=== PATIENT | female | born 1955 | race African-American/Black ===

== ENCOUNTER 2016-07-24 18:07 | Inpatient (IN) | payer MEDICAID ==
[2016-07-24] VITALS (9 sets, daily range): BP systolic 150–195; BP diastolic 79–97; PULSE 105–120; RESP 24–26; TEMP 99.6; O2SAT 83–98
[~2016-07-24] VITALS: Ht 167.6 cm; Wt 83.2 kg
[~2016-07-24 18:07] MED LIST: ALBU.5I NEB; ALBU1AER INH; BACL10TA PO; CETI10 PO; CIPR500T93 PO; DICY1TAB26 PO; DULE100A INH; FLAG500T PO; LACT10SO27 PO; MELO7.5 PO; MONT10TA2 PO; NIFE1TAB85 PO; OLOP1DRO EACH EYE; PATA0.2S EACH EYE; TRAV0.00 EACH EYE; TRAZ100 PO; ZOFR4TAB3 SL
[2016-07-24] MEDS ORDERED: methylPREDNISolone SOD SUCC 125 MG/2 ML VIAL IVP ONE (18:15)
[2016-07-24] MEDS ORDERED: SODIUM CHLORIDE 0.9% FLUSH 10 ML FLUSH IVF PRN (18:15)
--- NOTE | 2016-07-24 18:23 | PD ---
HPI Chief Complaint: Respiratory Distress Time Seen by Provider: 18:18 Travel History International Travel<30 days: No Contact w/Intl Traveler<30days: No Traveled to known affect area: No History of Present Illness HPI 60-year-old female complains of wheezing and shortness of breath. Patient states that the symptoms started a week ago. Patient has history of COPD. Patient has been using inhaler at home. Patient on inhaled steroid. Patient denies any chest pain. Patient denies any fever chills. Patient states that she has productive cough for the past week. Patient took Z-Shankar, last day today. Patient denies abdominal pain. Patient denies any nausea vomiting diarrhea. PFSH Past Medical History Asthma: Yes Cardiovascular Problems: Yes High Cholesterol: Yes Diabetes: Yes Diminished Hearing: No Gastrointestinal Disorders: Yes (chronic constipation) GERD: Yes Hypertension: Yes Respiratory: Yes Past Surgical History Gynecologic Surgery: Yes (OOPHARECTOMY AND EXP LAP) Hysterectomy: Yes Social History Alcohol Use: No Tobacco Use: Yes (4 CIGARETTS PER DAY FOR 20 YEARS) Substance Use: No Allergies-Medications (Allergen,Severity, Reaction): Coded Allergies: Anaprox (Verified Allergy, Intermediate, 07/24/16) Penicillin (Verified Allergy, Mild, 07/24/16) Reported Meds & Prescriptions Reported Meds & Active Scripts Active Zofran ODT (Ondansetron HCl) 4 Mg Tab 4 Mg SL Q6H PRN FOR NAUSEA/VOMITING Reported Lactulose (Lactulose (Encephalopathy)) 10GM/15 Elsy 30 Ml PO BID Pazeo (Olopatadine HCl) 0.7 % Nikita 1 Drop EACH EYE DAILY Proair Hfa (Albuterol Sulfate) 8.5 Gm Aero 2 Puff INH Q4H PRN * SHAKE WELL BEFORE USE * Dulera 100 mcg/dose (Mometasone Furoate-Formoterol 100 mcg/dose) 100 mcg/ actuation Inh 1 Puff INH BID Mobic 7.5 Mg Tab (Meloxicam) 7.5 Mg Tab 15 Mg PO DAILY Flagyl (Metronidazole) 500 Mg Tab 500 Mg PO TID 10 Days TAKE UNTIL GONE Bentyl (Dicyclomine HCl) 20 Mg Tab 20 Mg PO Q6H PRN Pataday (Olopatadine HCl) 0.2 % Elsy 1 Drop EACH EYE DAILY Travatan Z (Travoprost) 0.004 % Nikita 1 Drop EACH EYE HS Trazodone HCl 100 Mg Tab 100 Mg PO HS Procardia Xl (Nifedipine) 30 Mg Tabcr 30 Mg PO HS Proventil Ud 0.5% (Albuterol Sulfate) 2.5 Mg/0.5 Ml Nebu 2.5 Mg NEB 2-3 TIMES A DAY PRN Singulair (Montelukast Sodium) 10 Mg Tab 10 Mg PO HS Review of Systems General / Constitutional: No: Fever Eyes: No: Visual changes HENT: No: Headaches Cardiovascular: No: Chest Pain or Discomfort Respiratory: Positive: Cough, Shortness of Breath, Wheezing Gastrointestinal: No: Abdominal Pain Genitourinary: No: Dysuria Musculoskeletal: No: Pain Skin: No Rash Neurologic: No: Weakness Psychiatric: No: Depression Endocrine: No: Polydipsia Hematologic/Lymphatic: No: Easy Bruising Physical Exam Narrative GENERAL: Well-nourished, well-developed patient. SKIN: Focused skin assessment warm/dry. HEAD: Normocephalic. EYES: No scleral icterus. No injection or drainage. NECK: Supple, trachea midline. No JVD or lymphadenopathy. CARDIOVASCULAR: Regular rate and rhythm without murmurs, gallops, or rubs. RESPIRATORY: Patient has moderate expiratory wheezes bilaterally. Few rhonchi at the bases. GASTROINTESTINAL: Abdomen soft, non-tender, nondistended. MUSCULOSKELETAL: No cyanosis, or edema. BACK: Nontender without obvious deformity. No CVA tenderness. Neurologic exam normal. Data Data Last Documented VS Vital Signs Date Time Temp Pulse Resp B/P Pulse Ox O2 Delivery O2 Flow Rate FiO2 07/24/16 18:22 92 Nasal Cannula 6 07/24/16 18:13 99.6 120 26 195/97 Orders Complete Blood Count With Diff (07/24/16 18:13) Comprehensive Metabolic Panel (07/24/16 18:13) B-Type Natriuretic Peptide (07/24/16 18:13) D-Dimer (07/24/16 18:13) Act Partial Throm Time (Ptt) (07/24/16 18:13) Prothrombin Time / Inr (Pt) (07/24/16 18:13) Magnesium (Mg) (07/24/16 18:13) Ckmb (Isoenzyme) Profile (07/24/16 18:13) Troponin I (07/24/16 18:13) Arterial Blood Gas (Abg) (07/24/16 18:13) Iv Access Insert/Monitor (07/24/16 18:13) Electrocardiogram (07/24/16 18:13) Ecg Monitoring (07/24/16 18:13) Oximetry (07/24/16 18:13) Oxygen Administration (07/24/16 18:13) Chest, Single Ap (07/24/16 18:13) Sodium Chloride 0.9% Flush (Ns Flush) (07/24/16 18:15) Methylprednisolone So Succ Inj (Solumedr (07/24/16 18:15) Albuterol-Ipratropium Neb (Duoneb Neb) (07/24/16 18:15) Labs Laboratory Tests Test 07/24/16 07/24/16 18:16 18:20 Blood Gas Puncture Site LT RADIAL Blood Gas Patient Temperature 98.6 Blood Gas HCO3 32 mmol/L Blood Gas Base Excess 6.3 mmol/L Blood Gas Oxygen Saturation 82 % Arterial Blood pH 7.34 Arterial Blood Partial 60 mmHg Pressure CO2 Arterial Blood Partial 53 mmHG Pressure O2 Arterial Blood Oxygen Content 17.5 Vol % Arterial Blood 3.5 % Carboxyhemoglobin Arterial Blood Methemoglobin 0.7 % Blood Gas Hemoglobin 15.3 G/DL Oxygen Delivery Device NASAL CANNULA Blood Gas Liter Flow 6 L/M White Blood Count 8.5 TH/MM3 Red Blood Count 5.24 MIL/MM3 Hemoglobin 15.0 GM/DL Hematocrit 46.7 % Mean Corpuscular Volume 89.1 FL Mean Corpuscular Hemoglobin 28.7 PG Mean Corpuscular Hemoglobin 32.2 % Concent Red Cell Distribution Width 15.2 % Platelet Count 260 TH/MM3 Mean Platelet Volume 8.4 FL Neutrophils (%) (Auto) 81.9 % Lymphocytes (%) (Auto) 11.8 % Monocytes (%) (Auto) 5.5 % Eosinophils (%) (Auto) 0.0 % Basophils (%) (Auto) 0.8 % Neutrophils # (Auto) 6.9 TH/MM3 Lymphocytes # (Auto) 1.0 TH/MM3 Monocytes # (Auto) 0.5 TH/MM3 Eosinophils # (Auto) 0.0 TH/MM3 Basophils # (Auto) 0.1 TH/MM3 CBC Comment DIFF FINAL Differential Comment MDM Medical Decision Making Medical Screen Exam Complete: Yes Emergency Medical Condition: Yes Interpretation(s) 1823 PM. EKG shows sinus tachycardia. Rate 115. Nonspecific ST-T wave change. Differential Diagnosis Differential diagnosis including acute exacerbation COPD, bronchitis, pneumonia , PE, pneumothorax. Narrative Course 60-year-old female with wheezing and shortness of breath. History of COPD. Albuterol with Atrovent unit dose treatment 3. Solu-Medrol 125 mg IV. Diagnosis Primary Impression: COPD with acute exacerbation Fredy White MD July 24, 2016 18:23
[2016-07-24 18:26] LABS: BLOOD GAS BASE EXCESS 6.3 mmol/L (-2-2); BLOOD GAS CARBOXYHEMOGLOBIN 3.5 % (0-4); BLOOD GAS HCO3 32 mmol/L (22-26); BLOOD GAS METHEMOGLOBIN 0.7 % (0-2); BLOOD GAS O2 HGB SATURATION 82 % (90-100); BLOOD GAS OXYGEN CONTENT 17.5 Vol % (12.0-20.0); BLOOD GAS PCO2 60 mmHg (38-42); BLOOD GAS PO2 53 mmHG (61-120); BLOOD GAS TOTAL HGB 15.3 G/DL (12.0-16.0); CRITICAL VALUE YES; DRAW SITE LT RADIAL; LITER FLOW 6 L/M; NUMBER OF ARTERIAL PUNCTURES 1; OXYGEN DEVICE NASAL CANNULA; STAT YES; TEMP CORR TO 98.6
[2016-07-24] MEDS: RESP: ALBUTEROL 2.5 MG/IPRATROPIUM 0.5 MG NEB (SCH) INH ×5 (18:30→23:25)
[2016-07-24 18:35] LABS: AUTOMATED NEUTROPHIL # 6.9 TH/MM3 (1.8-7.7); BASOPHIL # 0.1 TH/MM3 (0-0.2); BASOPHIL % 0.8 % (0.0-2.0); HEMATOCRIT 46.7 % (35.0-46.0); HEMO FLAGS DIFF FINAL; LYMPH % 11.8 % (9.0-44.0); MEAN CELL VOLUME 89.1 FL (80.0-100.0); MEAN CORPUSCULAR HEMOGLOBIN 28.7 PG (27.0-34.0); MEAN CORPUSCULAR HGB CONC 32.2 % (32.0-36.0); MONO % 5.5 % (0.0-8.0); NEUT % 81.9 % (16.0-70.0); PLATELET COUNT 260 TH/MM3 (150-450); RED BLOOD COUNT 5.24 MIL/MM3 (4.00-5.30); RED CELL DISTRIBUTION WIDTH 15.2 % (11.6-17.2); WHITE BLOOD COUNT 8.5 TH/MM3 (4.0-11.0)
[2016-07-24 18:50] LABS: ANION GAP 9 MEQ/L (5-15); AST (GOT) 13 U/L (15-37); BICARBONATE 31.5 MEQ/L (21.0-32.0); BLOOD UREA NITROGEN 8 MG/DL (7-18); CHLORIDE 94 MEQ/L (98-107); GLOMERULAR FILTRATION RATE 153 ML/MIN (>89); MAGNESIUM 2.2 MG/DL (1.5-2.5); POTASSIUM 3.7 MEQ/L (3.5-5.1); SODIUM (NA) 134 MEQ/L (136-145)
[2016-07-24 18:51] LABS: APTT (PATIENT) 33.1 SEC (24.3-30.1); PROTHROMBIN TIME - PATIENT 11.3 SEC (9.8-11.6)
[2016-07-24 18:55] LABS: ALKALINE PHOSPHATASE 80 U/L (45-117); ALT (GPT) 13 U/L (10-53); TOTAL BILIRUBIN ADULT 0.4 MG/DL (0.2-1.0)
[2016-07-24 19:01] LABS: CREATINE KINASE 100 U/L (26-192)
--- NOTE | 2016-07-24 19:23 | RADRPT ---
EXAM DATE/TIME: 07/24/2016 18:33 [facility] COMPARISON: No previous studies available for comparison. INDICATIONS : Shortness of breath. MEDICAL HISTORY : Chronic obstructive pulmonary disease. SURGICAL HISTORY : None. ENCOUNTER: Initial ACUITY: 1 day PAIN SCORE: 0/10 LOCATION: Bilateral chest FINDINGS: A single view of the chest demonstrates no focal consolidation. Bronchial thickening. Minimal scatter ed scarring in the lungs. No effusion. CONCLUSION: 1. No focal consolidation. Mild hyperinflation with peribronchial thickening. Brian Bond MD on July 24, 2016 at 19:20 Board Certified Radiologist. This report was verified electronically.
--- NOTE | 2016-07-24 19:33 | PD ---
Data Data Last Documented VS Vital Signs Date Time Temp Pulse Resp B/P Pulse Ox O2 Delivery O2 Flow Rate FiO2 07/24/16 22:37 105 24 150/79 97 BiPAP 07/24/16 21:30 15.00 07/24/16 19:46 40 07/24/16 18:13 99.6 Orders Complete Blood Count With Diff (07/24/16 18:13) Comprehensive Metabolic Panel (07/24/16 18:13) B-Type Natriuretic Peptide (07/24/16 18:13) D-Dimer (07/24/16 18:13) Act Partial Throm Time (Ptt) (07/24/16 18:13) Prothrombin Time / Inr (Pt) (07/24/16 18:13) Magnesium (Mg) (07/24/16 18:13) Ckmb (Isoenzyme) Profile (07/24/16 18:13) Troponin I (07/24/16 18:13) Arterial Blood Gas (Abg) (07/24/16 18:13) Iv Access Insert/Monitor (07/24/16 18:13) Electrocardiogram (07/24/16 18:13) Ecg Monitoring (07/24/16 18:13) Oximetry (07/24/16 18:13) Oxygen Administration (07/24/16 18:13) Chest, Single Ap (07/24/16 18:13) Sodium Chloride 0.9% Flush (Ns Flush) (07/24/16 18:15) Methylprednisolone So Succ Inj (Solumedr (07/24/16 18:15) Albuterol-Ipratropium Neb (Duoneb Neb) (07/24/16 18:15) Albuterol-Ipratropium Neb (Duoneb Neb) (07/24/16 19:30) Ventilation & Perfusion Scan (07/24/16 ) Arterial Blood Gas (Abg) (07/24/16 ) Admit Order (Ed Use Only) (07/24/16 ) Labs Laboratory Tests Test 07/24/16 07/24/16 07/24/16 18:16 18:20 20:33 Blood Gas Puncture Site LT RADIAL LT RADIAL Blood Gas Patient Temperature 98.6 98.6 Blood Gas HCO3 32 mmol/L 32 mmol/L Blood Gas Base Excess 6.3 mmol/L 6.4 mmol/L Blood Gas Oxygen Saturation 82 % 94 % Arterial Blood pH 7.34 7.35 Arterial Blood Partial 60 mmHg 60 mmHg Pressure CO2 Arterial Blood Partial 53 mmHG 103 mmHG Pressure O2 Arterial Blood Oxygen Content 17.5 Vol % 19.5 Vol % Arterial Blood 3.5 % 2.8 % Carboxyhemoglobin Arterial Blood Methemoglobin 0.7 % 0.7 % Blood Gas Hemoglobin 15.3 G/DL 14.6 G/DL Oxygen Delivery Device NASAL CANNULA BiPAP Blood Gas Liter Flow 6 L/M White Blood Count 8.5 TH/MM3 Red Blood Count 5.24 MIL/MM3 Hemoglobin 15.0 GM/DL Hematocrit 46.7 % Mean Corpuscular Volume 89.1 FL Mean Corpuscular Hemoglobin 28.7 PG Mean Corpuscular Hemoglobin 32.2 % Concent Red Cell Distribution Width 15.2 % Platelet Count 260 TH/MM3 Mean Platelet Volume 8.4 FL Neutrophils (%) (Auto) 81.9 % Lymphocytes (%) (Auto) 11.8 % Monocytes (%) (Auto) 5.5 % Eosinophils (%) (Auto) 0.0 % Basophils (%) (Auto) 0.8 % Neutrophils # (Auto) 6.9 TH/MM3 Lymphocytes # (Auto) 1.0 TH/MM3 Monocytes # (Auto) 0.5 TH/MM3 Eosinophils # (Auto) 0.0 TH/MM3 Basophils # (Auto) 0.1 TH/MM3 CBC Comment DIFF FINAL Differential Comment Prothrombin Time 11.3 SEC Prothromb Time International 1.0 RATIO Ratio Activated Partial 33.1 SEC Thromboplast Time D-Dimer Quantitative (PE/DVT) 0.51 MG/L FEU Sodium Level 134 MEQ/L Potassium Level 3.7 MEQ/L Chloride Level 94 MEQ/L Carbon Dioxide Level 31.5 MEQ/L Anion Gap 9 MEQ/L Blood Urea Nitrogen 8 MG/DL Creatinine 0.50 MG/DL Estimat Glomerular Filtration 153 ML/MIN Rate Random Glucose 108 MG/DL Calcium Level 8.8 MG/DL Magnesium Level 2.2 MG/DL Total Bilirubin 0.4 MG/DL Aspartate Amino Transf 13 U/L (AST/SGOT) Alanine Aminotransferase 13 U/L (ALT/SGPT) Alkaline Phosphatase 80 U/L Total Creatine Kinase 100 U/L Troponin I LESS THAN 0.02 NG/ML B-Type Natriuretic Peptide 39 PG/ML Total Protein 8.2 GM/DL Albumin 3.5 GM/DL Blood Gas Ventilator Setting IPAP/12/EPAP5 Blood Gas Inspired Oxygen 40 % [facility] Supervised Visit with DONTRELL: No Narrative Course Care assumed from Dr. White at 1900. This is a 60-year-old female with shortness of breath for weak. History of COPD. She is on BiPAP on my arrival and has had breathing treatments and Solu-Medrol. She is satting 96% on the BiPAP machine currently. Remains tachycardic states overall she started to feel better. D-dimer is weakly positive at 0.51. CT PE protocol has been ordered but patient allergic to contrast, VQ scan was ordered after discussing with the radiologist. Additional DuoNeb treatments of been ordered as well. We will reassess after the PE protocol and additional DuoNeb for possible weaning off the BiPAP. She will be admitted as her initial O2 sat was in the 80s range and she is a failure of outpatient therapy. Last 24 hours Impressions Chest X-Ray 07/24/16 1813 Signed Impressions: Service Date/Time: Sunday, July 24, 2016 18:33 - CONCLUSION: 1. No focal consolidation. Mild hyperinflation with peribronchial thickening. Brian Bond MD Lung Scan-VQ Nuclear Medicine 07/24/16 0000 Signed Impressions: Service Date/Time: Sunday, July 24, 2016 21:37 - CONCLUSION: 1. Low probability for pulmonary embolus. Brian Bond MD Patient was discussed with Dr. Nicole who agrees for admission. Diagnosis Primary Impression: Acute respiratory failure with hypoxia Additional Impression: COPD with acute exacerbation Admitting Information Admitting Physician Requests: Admit Condition: Claudy Grant MD July 24, 2016 19:33
[2016-07-24 20:43] LABS: BLOOD GAS BASE EXCESS 6.4 mmol/L (-2-2); BLOOD GAS CARBOXYHEMOGLOBIN 2.8 % (0-4); BLOOD GAS HCO3 32 mmol/L (22-26); BLOOD GAS METHEMOGLOBIN 0.7 % (0-2); BLOOD GAS O2 HGB SATURATION 94 % (90-100); BLOOD GAS OXYGEN CONTENT 19.5 Vol % (12.0-20.0); BLOOD GAS PCO2 60 mmHg (38-42); BLOOD GAS PO2 103 mmHG (61-120); BLOOD GAS TOTAL HGB 14.6 G/DL (12.0-16.0); TEMP CORR TO 98.6
[2016-07-24 20:44] LABS: CRITICAL VALUE YES; DRAW SITE LT RADIAL; FIO2 40 %; NUMBER OF ARTERIAL PUNCTURES 1; OXYGEN DEVICE BiPAP; STAT YES; ULNAR PULSE PRESENT; VENT SETTINGS IPAP/12/EPAP5
--- NOTE | 2016-07-24 22:31 | RADRPT ---
EXAM DATE/TIME: 07/24/2016 21:37 [facility] COMPARISON: No previous studies available for comparison. INDICATIONS : Dyspnea with wheezing and cough for one day. DOSE: 8.5 mCi Tc99m MAA IV 0.66 mCi Tc99m DTPA aerosol MEDICAL HISTORY : Hypertension. Gastroesophageal reflux disease. Chronic obstructive pulmonary disease. SURGICAL HISTORY : Hysterectomy. ENCOUNTER: Initial ACUITY: 1 day PAIN SCALE: 0/10 LOCATION: Chest. TECHNIQUE: Following five minutes of tidal breathing of DTPA aerosol, planar images of the lungs were performed in eight projections. The patient was then injected with MAA, and eight-view perfusion scan was perf ormed. FINDINGS: There is multifocal air trapping on the ventilation images characteristic of reported history of COPD . No segmental perfusion defects are seen. There is mild heterogeneity. CONCLUSION: 1. Low probability for pulmonary embolus. Brian Bond MD on July 24, 2016 at 22:27 Board Certified Radiologist. This report was verified electronically.
[2016-07-24] MEDS ORDERED: DICYCLOMINE HCL 20 MG TAB PO PRN (23:00)
--- NOTE | 2016-07-24 23:13 | HHI.HP ---
HPI Service Critical Care Medicine Primary Care Physician Non-Staff Admission Diagnosis Hypoxic Respiratory Failure, COPD exacerbation Diagnosis: Travel History International Travel<30 Days: No Contact w/Intl Traveler <30 Da: No Traveled to Known Affected Are: No History of Present Illness 60-year-old female lifelong smoker presents complaining of wheezing and shortness of breath. Her symptoms started a week ago. She has known history of COPD and has been using her inhaler on a regular basis. She is also using in health steroid. She denies any chest pain, fever or chills. Patient states that she has productive cough for the past week and she took a Z-Shnakar, last day today. Review of Systems ROS Unable to obtain patient is facemask BiPAP Past Family Social History Allergies: Coded Allergies: Anaprox (Verified Allergy, Intermediate, 07/24/16) Penicillin (Verified Allergy, Mild, 07/24/16) Contrast Media (Verified Allergy, Unknown, 07/24/16) Iodine (Verified Allergy, Unknown, 07/24/16) Past Medical History COPD Asthma Diabetes GERD Hypertension Dyslipidemia Past Surgical History Oophorectomy Hysterectomy Reported Medications Reported Meds & Active Scripts Active Zofran ODT (Ondansetron HCl) 4 Mg Tab 4 Mg SL Q6H PRN FOR NAUSEA/VOMITING Reported Lactulose (Lactulose (Encephalopathy)) 10GM/15 Elsy 30 Ml PO BID Pazeo (Olopatadine HCl) 0.7 % Nikita 1 Drop EACH EYE DAILY Proair Hfa (Albuterol Sulfate) 8.5 Gm Aero 2 Puff INH Q4H PRN * SHAKE WELL BEFORE USE * Dulera 100 mcg/dose (Mometasone Furoate-Formoterol 100 mcg/dose) 100 mcg/ actuation Inh 1 Puff INH BID Mobic 7.5 Mg Tab (Meloxicam) 7.5 Mg Tab 15 Mg PO DAILY Flagyl (Metronidazole) 500 Mg Tab 500 Mg PO TID 10 Days TAKE UNTIL GONE Bentyl (Dicyclomine HCl) 20 Mg Tab 20 Mg PO Q6H PRN Pataday (Olopatadine HCl) 0.2 % Elsy 1 Drop EACH EYE DAILY Travatan Z (Travoprost) 0.004 % Nikita 1 Drop EACH EYE HS Trazodone HCl 100 Mg Tab 100 Mg PO HS Procardia Xl (Nifedipine) 30 Mg Tabcr 30 Mg PO HS Proventil Ud 0.5% (Albuterol Sulfate) 2.5 Mg/0.5 Ml Nebu 2.5 Mg NEB 2-3 TIMES A DAY PRN Singulair (Montelukast Sodium) 10 Mg Tab 10 Mg PO HS Active Ordered Medications Current Medications Medications (Trade) Dose Ordered Sig/Armani Route PRN Reason Start Time Stop Time Status Last Admin Dose Admin Sodium Chloride (NS Flush) 2 ml UNSCH PRN IVF FLUSH AFTER USING IV ACCESS 07/24/16 18:15 Dicyclomine HCl (Bentyl) 20 mg Q6H PRN PO ABDOMINAL CRAMPING 07/24/16 23:00 Meloxicam (Mobic) 15 mg DAILY PO 07/25/16 09:00 Montelukast Sodium (Singulair) 10 mg HS PO 07/25/16 21:00 Nifedipine (Procardia Xl) 30 mg HS PO 07/25/16 21:00 Trazodone HCl (Desyrel) 100 mg HS PO 07/25/16 21:00 Lactulose (Lactulose Liq) 30 ml BID PO 07/25/16 09:00 Patient Own Medication PT OWN MED: Mometasone Furoate-Formote... BID INH 07/25/16 09:00 Future Hold Olopatadine HCl (Patanol 0.1% Opth) 1 drop DAILY EACH EYE 07/25/16 09:00 Latanoprost 1 drop 1 drop HS EACH EYE 07/25/16 21:00 Sodium Chloride (NS 1000 ml Inj) 1,000 ml @ 84 mls/hr [id number] IV 07/24/16 23:04 07/24/16 23:31 Sodium Chloride (NS Flush) 2 ml UNSCH PRN .XX FLUSH AFTER USING IV ACCESS 07/24/16 23:15 Sodium Chloride (NS Flush) 2 ml BID .XX 07/25/16 09:00 Acetaminophen (Tylenol) 650 mg Q6H PRN PO PAIN 1-10 AND/OR FEVER >101F 07/24/16 23:15 Morphine Sulfate (Morphine Inj) 2 mg Q2H PRN IV PAIN SCALE 6 TO 10 07/24/16 23:15 Famotidine (Pepcid Inj) 20 mg Q12HR IV PUSH 07/25/16 09:00 Ondansetron HCl (Zofran Inj) 4 mg Q6H PRN IV NAUSEA OR VOMITING 07/24/16 23:15 Metoclopramide HCl (Reglan Inj) 10 mg Q6H PRN IV NAUSEA OR VOMITING 07/24/16 23:15 Docusate Sodium (Colace) 100 mg BID PO 07/25/16 09:00 Heparin Sodium (Porcine) (Heparin Inj) 5,000 units Q12H SQ 07/24/16 23:15 07/24/16 23:31 Miscellaneous Information 1 [id number] XX 07/24/16 23:15 Chlorhexidine Gluconate (Chlorhexidine 2% Cloth) 3 pack Taper DAILY@04 TOP 07/25/16 04:00 07/21/17 03:59 Chlorhexidine Gluconate (Chlorhexidine 2% Cloth) 3 pack UNSCH PRN TOP HYGIENIC CARE 07/24/16 23:15 Methylprednisolone Sodium Succinate 40 mg 40 mg Q6HR IV PUSH 07/25/16 00:00 Levofloxacin/ Dextrose (Levaquin 750 Mg Premix Inj) 150 ml @ 100 mls/hr Q24H IV 07/24/16 23:15 07/24/16 23:31 Family History Noncontributory Social History Lifelong smoking 4 cigarettes per day Denies alcohol or illicit drug abuse Physical Exam Vital Signs Vital Signs Date Time Temp Pulse Resp B/P Pulse Ox O2 Delivery O2 Flow Rate FiO2 07/24/16 22:37 105 24 150/79 97 BiPAP 07/24/16 21:30 98 15.00 07/24/16 20:18 96 CPAP 07/24/16 19:46 95 40 07/24/16 19:11 109 26 174/92 92 CPAP 07/24/16 18:58 93 40 07/24/16 18:22 92 Nasal Cannula 6 07/24/16 18:22 92 Nasal Cannula 6 07/24/16 18:18 87 6 07/24/16 18:13 99.6 120 26 195/97 83 Physical Exam GENERAL: Well-nourished, well-developed patient. Comfortable on face mask BiPAP SKIN: Warm and dry. HEAD: Normocephalic. EYES: No scleral icterus. No injection or drainage. NECK: Supple, trachea midline. No JVD or lymphadenopathy. CARDIOVASCULAR: Regular rate and rhythm without murmurs, gallops, or rubs. RESPIRATORY: Breath sounds equal bilaterally. No accessory muscle use. GASTROINTESTINAL: Abdomen soft, non-tender, nondistended. MUSCULOSKELETAL: No cyanosis, or edema. BACK: Nontender without obvious deformity. No CVA tenderness. EXTREMITIES: No clubbing cyanosis or edema Laboratory Laboratory Tests Test 07/24/16 07/24/16 07/24/16 18:16 18:20 20:33 Blood Gas Puncture Site LT RADIAL LT RADIAL Blood Gas Patient Temperature 98.6 98.6 Blood Gas HCO3 32 32 Blood Gas Base Excess 6.3 6.4 Blood Gas Oxygen Saturation 82 94 Arterial Blood pH 7.34 7.35 Arterial Blood Partial 60 60 Pressure CO2 Arterial Blood Partial 53 103 Pressure O2 Arterial Blood Oxygen Content 17.5 19.5 Arterial Blood 3.5 2.8 Carboxyhemoglobin Arterial Blood Methemoglobin 0.7 0.7 Blood Gas Hemoglobin 15.3 14.6 Oxygen Delivery Device NASAL CANNULA BiPAP Blood Gas Liter Flow 6 White Blood Count 8.5 Red Blood Count 5.24 Hemoglobin 15.0 Hematocrit 46.7 Mean Corpuscular Volume 89.1 Mean Corpuscular Hemoglobin 28.7 Mean Corpuscular Hemoglobin 32.2 Concent Red Cell Distribution Width 15.2 Platelet Count 260 Mean Platelet Volume 8.4 Neutrophils (%) (Auto) 81.9 Lymphocytes (%) (Auto) 11.8 Monocytes (%) (Auto) 5.5 Eosinophils (%) (Auto) 0.0 Basophils (%) (Auto) 0.8 Neutrophils # (Auto) 6.9 Lymphocytes # (Auto) 1.0 Monocytes # (Auto) 0.5 Eosinophils # (Auto) 0.0 Basophils # (Auto) 0.1 CBC Comment DIFF FINAL Differential Comment Prothrombin Time 11.3 Prothromb Time International 1.0 Ratio Activated Partial 33.1 Thromboplast Time D-Dimer Quantitative (PE/DVT) 0.51 Sodium Level 134 Potassium Level 3.7 Chloride Level 94 Carbon Dioxide Level 31.5 Anion Gap 9 Blood Urea Nitrogen 8 Creatinine 0.50 Estimat Glomerular Filtration 153 Rate Random Glucose 108 Calcium Level 8.8 Magnesium Level 2.2 Total Bilirubin 0.4 Aspartate Amino Transf 13 (AST/SGOT) Alanine Aminotransferase 13 (ALT/SGPT) Alkaline Phosphatase 80 Total Creatine Kinase 100 Troponin I LESS THAN 0.02 B-Type Natriuretic Peptide 39 Total Protein 8.2 Albumin 3.5 Blood Gas Ventilator Setting IPAP/12/EPAP5 Blood Gas Inspired Oxygen 40 Result Diagram: 07/24/16 1820 07/24/16 1820 Imaging Last 24 hours Impressions Chest X-Ray 07/24/16 1813 Signed Impressions: Service Date/Time: Sunday, July 24, 2016 18:33 - CONCLUSION: 1. No focal consolidation. Mild hyperinflation with peribronchial thickening. Brian Bond MD Assessment and Plan Assessment and Plan Respiratory failure - Due to COPD exacerbation - BiPAP - Treat underlying condition COPD exacerbation - IV steroid - Empiric antibiotic - BiPAP as needed - Singulair - DuoNeb scheduled and when necessary GERD - IV Pepcid while on BiPAP and steroids Hypertension - Procardia Glaucoma - Latanoprost DVT GI prophylaxis - Subcutaneous heparin and Pepcid Critical Care: The total critical care time was 35 minutes. Time to perform other separately billable procedures was not included in the critical care time. Blue Nicole MD July 24, 2016 23:13
[2016-07-24] MEDS ORDERED: ACETAMINOPHEN 325 MG TAB PO PRN (23:15)
[2016-07-24] MEDS ORDERED: MISCELLANEOUS NURSING INFORMATION XX SCH (23:15)
[2016-07-24] MEDS ORDERED: ONDANSETRON HCL 4 MG/2 ML VIAL IV PRN (23:15)
[2016-07-24] MEDS ORDERED: SODIUM CHLORIDE 0.9% FLUSH 10 ML FLUSH PRN (23:15)
[2016-07-24] MEDS ORDERED: METOCLOPRAMIDE HCL 10 MG/2 ML VIAL IV PRN (23:15)
[2016-07-24] MEDS ORDERED: CHLORHEXIDINE GLUCONATE 2 % 1 PACK (2 CLOTHS) TOP PRN (23:15)
[2016-07-24] MEDS: SODIUM CHLOR 0.9% 1000 ML INJ 1,000 ML IV SCH (23:31)
[2016-07-24] MEDS: HEPARIN SODIUM - SQ 10,000 UNITS/ML VIAL SQ SCH (23:31)
[2016-07-24] MEDS: LEVOFLOXACIN 750 MG PREMIX INJ 150 ML IV SCH (23:31)
[2016-07-25] VITALS (20 sets, daily range): BP systolic 111–164; BP diastolic 78–90; PULSE 90–112; RESP 16–41; TEMP 97.9–98.9; O2SAT 15–98
--- NOTE | 2016-07-25 04:55 | RADRPT ---
EXAM DATE/TIME: 07/25/2016 04:15 [facility] COMPARISON: CHEST SINGLE AP, July 24, 2016, 18:33. INDICATIONS : Shortness of breath. MEDICAL HISTORY : Chronic obstructive pulmonary disease. SURGICAL HISTORY : None. ENCOUNTER: Subsequent ACUITY: 2 days PAIN SCORE: 0/10 LOCATION: Bilateral chest FINDINGS: A single view of the chest demonstrates the lungs to be symmetrically hyperinflated without evidence of mass, infiltrate or effusion. The cardiomediastinal contours are unremarkable. Osseous structure s are intact. There are multiple overlying electrocardiogram leads. CONCLUSION: Stable appearance of hyperinflation and no acute cardiopulmonary disease. Frederick Cordero MD on July 25, 2016 at 4:53 Board Certified Radiologist. This report was verified electronically.
[2016-07-25] MEDS: CHLORHEXIDINE GLUCONATE 2 % 1 PACK (2 CLOTHS) TOP SCH (05:07)
[2016-07-25] MEDS: methylPREDNISolone SOD SUCC 40 MG/1 ML VIAL IV PUSH SCH ×3 (05:07→17:35)
[2016-07-25] MEDS: RESP: ALBUTEROL 2.5 MG/IPRATROPIUM 0.5 MG NEB (SCH) INH ×6 (05:27→23:46)
[2016-07-25 06:02] LABS: AUTOMATED NEUTROPHIL # 5.6 TH/MM3 (1.8-7.7); BASOPHIL % 0.3 % (0.0-2.0); HEMATOCRIT 40.8 % (35.0-46.0); HEMO FLAGS DIFF FINAL; LYMPH % 9.5 % (9.0-44.0); LYMPHOCYTE # 0.6 TH/MM3 (1.0-4.8); MEAN CELL VOLUME 87.6 FL (80.0-100.0); MEAN CORPUSCULAR HEMOGLOBIN 29.6 PG (27.0-34.0); MEAN CORPUSCULAR HGB CONC 33.8 % (32.0-36.0); MONO % 1.5 % (0.0-8.0); NEUT % 88.7 % (16.0-70.0); PLATELET COUNT 262 TH/MM3 (150-450); RED BLOOD COUNT 4.66 MIL/MM3 (4.00-5.30); WHITE BLOOD COUNT 6.3 TH/MM3 (4.0-11.0)
[2016-07-25 06:32] LABS: ALKALINE PHOSPHATASE 67 U/L (45-117); ALT (GPT) 13 U/L (10-53); ANION GAP 6 MEQ/L (5-15); AST (GOT) 12 U/L (15-37); BICARBONATE 33.4 MEQ/L (21.0-32.0); BLOOD UREA NITROGEN 7 MG/DL (7-18); CHLORIDE 101 MEQ/L (98-107); GLOMERULAR FILTRATION RATE 217 ML/MIN (>89); MAGNESIUM 2.4 MG/DL (1.5-2.5); SODIUM (NA) 140 MEQ/L (136-145); TOTAL BILIRUBIN ADULT 0.3 MG/DL (0.2-1.0)
[2016-07-25] MEDS: LACTULOSE SYRUP 20 GM/30 ML CUP PO SCH ×2 (08:30→20:03)
[2016-07-25] MEDS: DOCUSATE SODIUM 100 MG CAP PO SCH ×2 (08:30→20:04)
[2016-07-25] MEDS: SODIUM CHLORIDE 0.9% FLUSH 10 ML FLUSH SCH ×2 (08:31→20:04)
[2016-07-25] MEDS ORDERED: FAMOTIDINE 20 MG/2 ML VIAL IV PUSH SCH (09:00)
[2016-07-25] MEDS ORDERED: [UNRECOGNIZED DRUG - OTHER] INH SCH (09:00)
[2016-07-25] MEDS: MELOXICAM 7.5 MG TAB PO SCH (09:00)
[2016-07-25] MEDS ORDERED: FORMOTEROL INH SCH (09:00)
[2016-07-25] MEDS ORDERED: OLOPATADINE HCL EACH EYE SCH (09:00)
[2016-07-25] MEDS: OLOPATADINE HCL 0.1% OPHT SOLN 5 ML BTL EACH EYE SCH (09:00)
--- NOTE | 2016-07-25 10:46 | EKG ---
Date Performed: 07/24/2016 Time Performed: 18:16:33 PTAGE: 60 years EKG: SINUS TACHYCARDIA BORDERLINE RIGHT AXIS DEVIATION PATTERN CONSISTENT WITH PULMONARY DISEASE ABNORMAL ECG NO PREVIOUS TRACING DOCTOR: Des Shannon Interpretating Date/Time 07/25/2016 10:44:05
[2016-07-25] MEDS: SODIUM CHLOR 0.9% 1000 ML INJ 1,000 ML IV SCH (11:23)
[2016-07-25] MEDS: HEPARIN SODIUM - SQ 10,000 UNITS/ML VIAL SQ SCH (11:24)
--- NOTE | 2016-07-25 13:01 | HHI.PR ---
Subjective Remarks on 4L NC- afebrile, minimal cough , breathing slightly better no sputum Objective Vitals Vital Signs Date Time Temp Pulse Resp B/P Pulse Ox O2 Delivery O2 Flow Rate FiO2 07/25/16 12:00 97 07/25/16 12:00 98.0 97 19 126/78 90 07/25/16 10:00 97 07/25/16 08:26 98 Nasal Cannula 4.00 07/25/16 08:00 98.8 93 19 124/85 96 07/25/16 08:00 93 07/25/16 06:00 95 07/25/16 05:27 97 40 07/25/16 04:00 94 07/25/16 04:00 98.2 92 16 111/80 97 07/25/16 02:00 102 07/25/16 01:00 112 07/25/16 01:00 98.9 112 31 126/81 97 07/25/16 00:51 98 40 07/25/16 00:45 96 15.00 100 07/25/16 00:45 15 96 07/24/16 23:27 96 40 07/24/16 22:37 105 24 150/79 97 BiPAP 07/24/16 21:30 98 Non-Rebreather 15.00 07/24/16 21:30 98 15.00 07/24/16 20:18 96 CPAP 07/24/16 19:46 95 40 07/24/16 19:11 109 26 174/92 92 CPAP 07/24/16 18:58 93 40 07/24/16 18:22 92 Nasal Cannula 6 07/24/16 18:22 92 Nasal Cannula 6.00 07/24/16 18:22 92 Nasal Cannula 6 07/24/16 18:18 87 6 07/24/16 18:13 99.6 120 26 195/97 83 I/O 07/24/16 07/24/16 07/24/16 07/25/16 07/25/16 07/25/16 07:00 15:00 23:00 07:00 15:00 23:00 Output Total 200 ml Balance -200 ml Output Urine Total 200 ml Result Diagram: 07/25/16 0545 07/25/16 0545 Imaging Last Impressions Chest X-Ray 07/25/16 0000 Signed Impressions: Service Date/Time: Monday, July 25, 2016 04:15 - CONCLUSION: Stable appearance of hyperinflation and no acute cardiopulmonary disease. Frederick Cordero MD Lung Scan-V Nuclear Medicine 07/24/16 0000 Signed Impressions: Service Date/Time: Sunday, July 24, 2016 21:37 - CONCLUSION: 1. Low probability for pulmonary embolus. Brian Bond MD Objective Remarks awake and alert, with few expiratory wheezes regular rhythm abdomen soft, nontender extremities no edema neuro exam- non focal A/P Assessment and Plan Acute Respiratory failure - Due to COPD exacerbation - off BiPAP- now on NC 4L - Pulmonary ff -will get a walk test prio to [place] if qualifies for home 02 COPD exacerbation- - IV steroid - Empiric antibiotic - BiPAP as needed - Singulair - DuoNeb scheduled and when necessary check PFTs GERD - change to po PPI Hypertension - Procardia Glaucoma - Latanoprost DVT GI prophylaxis - Subcutaneous heparin and Pepcid Gradually increase activity as tolerated- Out of bed to Melva Gerber MD July 25, 2016 13:01
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
[2016-07-25] MEDS: NIFEdipine 30 MG SUSTAINED RELEASE TAB PO SCH (20:03)
[2016-07-25] MEDS: MONTELUKAST SODIUM 10 MG TAB PO SCH (20:03)
[2016-07-25] MEDS: FAMOTIDINE 20 MG TAB PO SCH (20:03)
[2016-07-25] MEDS: traZODone HCL 100 MG TAB PO SCH (20:03)
[2016-07-25] MEDS: LATANOPROST 0.005% OPHT SOLN 2.5 ML BTL EACH EYE SCH (21:42)
[2016-07-26] VITALS (34 sets, daily range): BP systolic 125–151; BP diastolic 69–91; PULSE 79–100; RESP 14–41; TEMP 97.4–98.6; O2SAT 93–100
[2016-07-26] MEDS: LEVOFLOXACIN 750 MG PREMIX INJ 150 ML IV SCH ×2 (00:12→22:42)
[2016-07-26] MEDS: HEPARIN SODIUM - SQ 10,000 UNITS/ML VIAL SQ SCH ×3 (00:12→22:41)
[2016-07-26] MEDS: methylPREDNISolone SOD SUCC 40 MG/1 ML VIAL IV PUSH SCH ×4 (00:12→20:50)
[2016-07-26] MEDS: RESP: ALBUTEROL 2.5 MG/IPRATROPIUM 0.5 MG NEB (SCH) INH ×5 (03:19→21:58)
[2016-07-26] MEDS: CHLORHEXIDINE GLUCONATE 2 % 1 PACK (2 CLOTHS) TOP SCH (05:58)
[2016-07-26] MEDS: DOCUSATE SODIUM 100 MG CAP PO SCH ×2 (08:50→20:08)
[2016-07-26] MEDS: LACTULOSE SYRUP 20 GM/30 ML CUP PO SCH ×2 (08:50→20:26)
[2016-07-26] MEDS: FAMOTIDINE 20 MG TAB PO SCH ×2 (08:51→20:08)
[2016-07-26] MEDS: MELOXICAM 7.5 MG TAB PO SCH (08:51)
[2016-07-26] MEDS: MORPHINE SULFATE 4 MG/ML INJ IV PRN ×2 (08:54→22:42)
[2016-07-26] MEDS: OLOPATADINE HCL 0.1% OPHT SOLN 5 ML BTL EACH EYE SCH (09:00)
--- NOTE | 2016-07-26 15:08 | HHI.PR ---
Subjective Remarks up on chair breathing better, good po Objective Vitals Vital Signs Date Time Temp Pulse Resp B/P Pulse Ox O2 Delivery O2 Flow Rate FiO2 07/26/16 14:00 94 07/26/16 12:00 98.3 98 24 137/75 100 07/26/16 12:00 79 07/26/16 10:00 79 07/26/16 08:00 98.1 80 26 137/79 100 07/26/16 08:00 79 07/26/16 07:58 79 07/26/16 07:54 100 Nasal Cannula 3.50 07/26/16 06:00 83 07/26/16 04:27 99 40 07/26/16 04:00 88 07/26/16 04:00 97.9 88 33 143/87 100 07/26/16 02:00 82 07/26/16 01:16 97 40 07/26/16 00:00 84 07/26/16 00:00 98.3 90 20 138/80 94 07/26/16 00:00 98.2 85 16 137/76 98 07/25/16 22:55 98 40 07/25/16 22:00 93 07/25/16 21:51 98 40 07/25/16 21:00 92 07/25/16 20:25 93 Nasal Cannula 4.00 07/25/16 20:00 90 07/25/16 20:00 97.9 90 41 164/90 94 07/25/16 18:00 90 07/25/16 16:00 90 07/25/16 16:00 98.3 90 20 138/80 94 I/O 07/25/16 07/25/16 07/25/16 07/26/16 07/26/16 07/26/16 07:00 15:00 23:00 07:00 15:00 23:00 Intake Total 1100 ml 245 ml 186 ml 385 ml Output Total 200 ml 975 ml 250 ml 350 ml 453 ml Balance -200 ml 125 ml -5 ml -164 ml -68 ml Intake Oral 300 ml 240 ml 0 ml 380 ml IV Total 800 ml 5 ml 186 ml 5 ml Output Urine Total 200 ml 975 ml 250 ml 350 ml 452 ml Stool Total 1 ml Result Diagram: 07/25/16 0545 07/25/16 0545 Imaging Last Impressions Chest X-Ray 07/25/16 0000 Signed Impressions: Service Date/Time: Monday, July 25, 2016 04:15 - CONCLUSION: Stable appearance of hyperinflation and no acute cardiopulmonary disease. Frederick Cordero MD Lung Scan-V Nuclear Medicine 07/24/16 0000 Signed Impressions: Service Date/Time: Sunday, July 24, 2016 21:37 - CONCLUSION: 1. Low probability for pulmonary embolus. Brian Bond MD Objective Remarks awake and alert, decreased breath sounds, regular rhythm abdomen soft, nontender extremities no edema neuro exam- non focal A/P Assessment and Plan Acute Respiratory failure - Due to COPD exacerbation - off BiPAP- now on NC 4L - Pulmonary ff -will get a walk test prio to DC if qualifies for home 02- I think she will qualify COPD exacerbation- - IV steroid- decrease to q 8 - Empiric antibiotic - BiPAP as needed - Singulair - DuoNeb scheduled and when necessary - check PFTs GERD - po PPI Hypertension - Procardia Glaucoma - Latanoprost DVT GI prophylaxis - Subcutaneous heparin and Pepcid Gradually increase activity as tolerated- Transfer to medical floor Melva Armando MD July 26, 2016 15:08
--- NOTE | 2016-07-26 19:38 | HHI.PR ---
Subjective Remarks 60 YOAA female with COPD exac Weaned to NC Breathing better Weak, desaturates Objective Vital Signs Vital Signs Date Time Temp Pulse Resp B/P Pulse Ox O2 Delivery O2 Flow Rate FiO2 07/26/16 18:00 94 07/26/16 16:00 94 07/26/16 16:00 98.6 97 24 145/82 100 07/26/16 14:00 94 07/26/16 12:30 91 26 93 07/26/16 12:15 85 40 99 07/26/16 12:00 83 34 138/75 94 07/26/16 12:00 98.3 98 24 137/75 100 07/26/16 12:00 79 07/26/16 11:45 84 25 07/26/16 11:30 79 19 07/26/16 11:15 80 16 07/26/16 11:00 82 26 141/78 07/26/16 10:45 79 16 07/26/16 10:30 81 20 07/26/16 10:15 84 20 07/26/16 10:00 79 07/26/16 10:00 80 20 125/69 07/26/16 09:45 82 16 07/26/16 09:30 86 18 07/26/16 09:15 88 14 07/26/16 09:00 91 20 133/74 07/26/16 08:45 100 27 07/26/16 08:30 97 38 07/26/16 08:15 91 41 100 07/26/16 08:00 98.1 80 26 137/79 100 07/26/16 08:00 79 33 137/79 99 07/26/16 08:00 79 07/26/16 07:58 79 07/26/16 07:54 100 Nasal Cannula 3.50 07/26/16 06:00 83 07/26/16 04:27 99 40 07/26/16 04:00 88 07/26/16 04:00 97.9 88 33 143/87 100 07/26/16 02:00 82 07/26/16 01:16 97 40 07/26/16 00:00 84 07/26/16 00:00 98.3 90 20 138/80 94 07/26/16 00:00 98.2 85 16 137/76 98 07/25/16 22:55 98 40 07/25/16 22:00 93 07/25/16 21:51 98 40 07/25/16 21:00 92 07/25/16 20:25 93 Nasal Cannula 4.00 07/25/16 20:00 90 07/25/16 20:00 97.9 90 41 164/90 94 I/O 07/25/16 07/25/16 07/25/16 07/26/16 07/26/16 07/26/16 07:00 15:00 23:00 07:00 15:00 23:00 Intake Total 1100 ml 245 ml 186 ml 385 ml Output Total 200 ml 975 ml 250 ml 350 ml 453 ml Balance -200 ml 125 ml -5 ml -164 ml -68 ml Intake Oral 300 ml 240 ml 0 ml 380 ml IV Total 800 ml 5 ml 186 ml 5 ml Output Urine Total 200 ml 975 ml 250 ml 350 ml 452 ml Stool Total 1 ml Result Diagram: 07/25/16 0545 07/25/16 0545 Objective Remarks GENERAL: MBMN female, mild sob SKIN: Warm and dry. HEAD: Normocephalic. EYES: No scleral icterus. No injection or drainage. NECK: Supple, trachea midline. No JVD or lymphadenopathy. CARDIOVASCULAR: Regular rate and rhythm without murmurs, gallops, or rubs. RESPIRATORY: Breath sounds equal bilaterally. No accessory muscle use. End exp rhonchi GASTROINTESTINAL: Abdomen soft, non-tender, nondistended. MUSCULOSKELETAL: No cyanosis, or edema. BACK: Nontender without obvious deformity. No CVA tenderness. A/P Assessment and Plan Hypercapnoic RF, improved COPD exac Nicotine use Ch Pain PLAN: Cont Solumedrol Aerosol nebs Symb 2 puffs bid Wean 02 CPAP prn SQ Heparin Jean-Pierre Song MD July 26, 2016 19:38
[2016-07-26] MEDS: NIFEdipine 30 MG SUSTAINED RELEASE TAB PO SCH (20:07)
[2016-07-26] MEDS: BUDESONIDE-FORMOTEROL 160/4.5 MCG INHALER INH SCH (20:08)
[2016-07-26] MEDS: traZODone HCL 100 MG TAB PO SCH (20:08)
[2016-07-26] MEDS: MONTELUKAST SODIUM 10 MG TAB PO SCH (20:08)
[2016-07-26] MEDS: LATANOPROST 0.005% OPHT SOLN 2.5 ML BTL EACH EYE SCH (20:08)
[2016-07-26] MEDS: SODIUM CHLORIDE 0.9% FLUSH 10 ML FLUSH SCH (20:09)
[2016-07-27] VITALS (7 sets, daily range): BP systolic 112–141; BP diastolic 70–83; PULSE 80–97; RESP 18–20; TEMP 97.3–98.1; O2SAT 94–96
[2016-07-27] MEDS: RESP: ALBUTEROL 2.5 MG/IPRATROPIUM 0.5 MG NEB (SCH) INH ×7 (00:17→23:50)
[2016-07-27] MEDS: CHLORHEXIDINE GLUCONATE 2 % 1 PACK (2 CLOTHS) TOP SCH (04:00)
[2016-07-27] MEDS: methylPREDNISolone SOD SUCC 40 MG/1 ML VIAL IV PUSH SCH ×3 (05:51→21:18)
[2016-07-27] MEDS: FAMOTIDINE 20 MG TAB PO SCH ×2 (08:37→21:17)
[2016-07-27] MEDS: MELOXICAM 7.5 MG TAB PO SCH (08:37)
[2016-07-27] MEDS: DOCUSATE SODIUM 100 MG CAP PO SCH ×2 (08:38→21:17)
[2016-07-27] MEDS: LACTULOSE SYRUP 20 GM/30 ML CUP PO SCH ×2 (08:38→21:17)
[2016-07-27] MEDS: MORPHINE SULFATE 4 MG/ML INJ IV PRN ×2 (08:41→21:18)
[2016-07-27] MEDS: OLOPATADINE HCL 0.1% OPHT SOLN 5 ML BTL EACH EYE SCH (08:41)
[2016-07-27] MEDS: BUDESONIDE-FORMOTEROL 160/4.5 MCG INHALER INH SCH ×2 (08:43→21:00)
[2016-07-27] MEDS: SODIUM CHLORIDE 0.9% FLUSH 10 ML FLUSH SCH ×2 (08:44→21:16)
[2016-07-27] MEDS: HEPARIN SODIUM - SQ 10,000 UNITS/ML VIAL SQ SCH ×2 (11:18→23:59)
[2016-07-27] MEDS ORDERED: OXYGENTANK NAS.CANULA (14:16)
--- NOTE | 2016-07-27 14:21 | HHI.PR ---
Subjective Remarks feeling better, up and ambulated no nausea or vomiting + minimal cough- non productive Objective Vitals Vital Signs Date Time Temp Pulse Resp B/P Pulse Ox O2 Delivery O2 Flow Rate FiO2 07/27/16 12:36 97.4 90 18 117/77 94 07/27/16 08:00 97.3 80 18 132/83 94 07/27/16 07:43 96 Nasal Cannula 4.00 07/27/16 05:39 97.7 86 18 118/71 96 07/26/16 22:30 99 40 07/26/16 21:58 94 Nasal Cannula 3.00 07/26/16 21:33 97.4 86 20 127/86 94 07/26/16 20:00 92 07/26/16 20:00 98.6 92 26 151/91 93 07/26/16 18:00 94 07/26/16 16:00 94 07/26/16 16:00 98.6 97 24 145/82 100 I/O 07/26/16 07/26/16 07/26/16 07/27/16 07/27/16 07/27/16 07:00 15:00 23:00 07:00 15:00 23:00 Intake Total 186 ml 385 ml Output Total 350 ml 453 ml 150 ml Balance -164 ml -68 ml -150 ml Intake Oral 0 ml 380 ml IV Total 186 ml 5 ml Output Urine Total 350 ml 452 ml 150 ml Stool Total 1 ml # Bowel Movements 0 Result Diagram: 07/25/16 0545 07/25/16 0545 Imaging Last Impressions Chest X-Ray 07/25/16 0000 Signed Impressions: Service Date/Time: Monday, July 25, 2016 04:15 - CONCLUSION: Stable appearance of hyperinflation and no acute cardiopulmonary disease. Frederick Cordero MD Lung Scan-V Nuclear Medicine 07/24/16 0000 Signed Impressions: Service Date/Time: Sunday, July 24, 2016 21:37 - CONCLUSION: 1. Low probability for pulmonary embolus. Brian Bond MD Objective Remarks awake and alert, decreased breath sounds, few rhonchi regular rhythm abdomen soft, nontender extremities no edema neuro exam- non focal A/P Assessment and Plan Acute Respiratory failure - Due to COPD exacerbation - off BiPAP- now on NC 4L - Pulmonary ff -will get a walk test today - if qualifies for home 02- I think she will qualify COPD exacerbation- - IV steroid q 8- change to po prior to DC - Empiric antibiotic - BiPAP as needed - Singulair - DuoNeb scheduled and when necessary - check PFTs - Dr. Song ff GERD - po PPI Hypertension - Procardia Glaucoma - Latanoprost DVT GI prophylaxis - Subcutaneous heparin and Pepcid Gradually increase activity as tolerated- Transfer to medical floor CM for DC planning- o2 DME Melva Armando MD July 27, 2016 14:21
[2016-07-27] MEDS: LATANOPROST 0.005% OPHT SOLN 2.5 ML BTL EACH EYE SCH (21:00)
[2016-07-27] MEDS: MONTELUKAST SODIUM 10 MG TAB PO SCH (21:17)
[2016-07-27] MEDS: traZODone HCL 100 MG TAB PO SCH (21:17)
[2016-07-27] MEDS: NIFEdipine 30 MG SUSTAINED RELEASE TAB PO SCH (21:17)
[2016-07-27] MEDS: LEVOFLOXACIN 750 MG PREMIX INJ 150 ML IV SCH (23:59)
[2016-07-28] VITALS (8 sets, daily range): BP systolic 118–147; BP diastolic 73–90; PULSE 87–103; RESP 18–20; TEMP 97.3–97.9; O2SAT 90–99
[2016-07-28] MEDS: RESP: ALBUTEROL 2.5 MG/IPRATROPIUM 0.5 MG NEB (SCH) INH ×5 (03:12→21:10)
[2016-07-28] MEDS: CHLORHEXIDINE GLUCONATE 2 % 1 PACK (2 CLOTHS) TOP SCH (04:00)
[2016-07-28] MEDS: methylPREDNISolone SOD SUCC 40 MG/1 ML VIAL IV PUSH SCH ×2 (05:49→13:11)
[2016-07-28] MEDS: DOCUSATE SODIUM 100 MG CAP PO SCH ×2 (09:00→19:54)
[2016-07-28] MEDS: OLOPATADINE HCL 0.1% OPHT SOLN 5 ML BTL EACH EYE SCH (09:00)
[2016-07-28] MEDS: BUDESONIDE-FORMOTEROL 160/4.5 MCG INHALER INH SCH ×2 (09:00→19:55)
[2016-07-28] MEDS: MELOXICAM 7.5 MG TAB PO SCH (09:02)
[2016-07-28] MEDS: LACTULOSE SYRUP 20 GM/30 ML CUP PO SCH ×2 (09:02→19:54)
[2016-07-28] MEDS: FAMOTIDINE 20 MG TAB PO SCH ×2 (09:02→19:54)
[2016-07-28] MEDS: HEPARIN SODIUM - SQ 10,000 UNITS/ML VIAL SQ SCH ×2 (09:03→21:55)
[2016-07-28] MEDS: SODIUM CHLORIDE 0.9% FLUSH 10 ML FLUSH SCH ×2 (09:04→19:56)
[2016-07-28] MEDS: MORPHINE SULFATE 4 MG/ML INJ IV PRN ×2 (09:05→17:24)
--- NOTE | 2016-07-28 09:59 | HHI.PR ---
Subjective Remarks feeling better- now at least able to get around room but still limited with shortness of breath d/w her that she should learn to pace herself minimal cough- dry Objective Vitals Vital Signs Date Time Temp Pulse Resp B/P Pulse Ox O2 Delivery O2 Flow Rate FiO2 07/28/16 09:21 96 Nasal Cannula 3.00 07/28/16 08:06 97.5 87 20 142/90 95 07/28/16 04:00 97.3 102 20 147/73 95 07/28/16 00:00 97.7 91 18 136/79 96 07/27/16 21:29 94 Nasal Cannula 3.00 07/27/16 20:00 98.1 97 20 141/83 94 07/27/16 16:37 97.7 86 18 112/70 96 07/27/16 12:36 97.4 90 18 117/77 94 I/O 07/27/16 07/27/16 07/27/16 07/28/16 07/28/16 07/28/16 07:00 15:00 23:00 07:00 15:00 23:00 Intake Total 480 ml Output Total 150 ml Balance -150 ml 480 ml Intake Oral 480 ml Output Urine Total 150 ml # Voids 2 1 # Bowel Movements 0 Result Diagram: 07/25/16 0545 07/25/16 0545 Imaging Last Impressions Chest X-Ray 07/25/16 0000 Signed Impressions: Service Date/Time: Monday, July 25, 2016 04:15 - CONCLUSION: Stable appearance of hyperinflation and no acute cardiopulmonary disease. Frederick Cordero MD Lung Scan- Nuclear Medicine 07/24/16 0000 Signed Impressions: Service Date/Time: Sunday, July 24, 2016 21:37 - CONCLUSION: 1. Low probability for pulmonary embolus. Brian Bond MD Objective Remarks awake and alert, decreased breath sounds, no rhonchi, few occasional end inspiratory wheeze regular rhythm abdomen soft, nontender extremities no edema neuro exam- non focal A/P Assessment and Plan Acute Respiratory failure - Due to COPD exacerbation - off BiPAP- now on NC 4L - Pulmonary ff -will get a walk test today - if qualifies for home 02- I think she will qualify COPD exacerbation- - IV steroid q 8- decrease to q 12 - Empiric antibiotic - BiPAP as needed - Singulair - DuoNeb scheduled and when necessary - Dr. Song ff GERD - po PPI Hypertension - Procardia Glaucoma - Latanoprost DVT GI prophylaxis - Subcutaneous heparin and Pepcid Gradually increase activity as tolerated- CM for DC planning- o2 DME walk test Melva Armando MD July 28, 2016 09:59
[2016-07-28] MEDS: LEVOFLOXACIN 500 MG TAB PO SCH (17:22)
[2016-07-28] MEDS: traZODone HCL 100 MG TAB PO SCH (19:53)
[2016-07-28] MEDS: NIFEdipine 30 MG SUSTAINED RELEASE TAB PO SCH (19:54)
[2016-07-28] MEDS: MONTELUKAST SODIUM 10 MG TAB PO SCH (19:54)
[2016-07-28] MEDS: LATANOPROST 0.005% OPHT SOLN 2.5 ML BTL EACH EYE SCH (19:55)
[2016-07-29] VITALS (8 sets, daily range): BP systolic 117–138; BP diastolic 74–91; PULSE 85–96; RESP 18–20; TEMP 97.6–97.8; O2SAT 92–94
[2016-07-29] MEDS: methylPREDNISolone SOD SUCC 40 MG/1 ML VIAL IV PUSH SCH ×2 (01:19→13:56)
[2016-07-29] MEDS: CHLORHEXIDINE GLUCONATE 2 % 1 PACK (2 CLOTHS) TOP SCH (04:00)
[2016-07-29] MEDS: LACTULOSE SYRUP 20 GM/30 ML CUP PO SCH ×2 (08:04→21:13)
[2016-07-29] MEDS: OLOPATADINE HCL 0.1% OPHT SOLN 5 ML BTL EACH EYE SCH (08:04)
[2016-07-29] MEDS: HEPARIN SODIUM - SQ 10,000 UNITS/ML VIAL SQ SCH ×2 (08:04→22:51)
[2016-07-29] MEDS: MELOXICAM 7.5 MG TAB PO SCH (08:04)
[2016-07-29] MEDS: DOCUSATE SODIUM 100 MG CAP PO SCH ×2 (08:04→21:13)
[2016-07-29] MEDS: FAMOTIDINE 20 MG TAB PO SCH ×2 (08:04→21:13)
[2016-07-29] MEDS: SODIUM CHLORIDE 0.9% FLUSH 10 ML FLUSH SCH ×2 (08:05→21:00)
[2016-07-29] MEDS: BUDESONIDE-FORMOTEROL 160/4.5 MCG INHALER INH SCH ×2 (08:05→21:00)
[2016-07-29] MEDS: MORPHINE SULFATE 4 MG/ML INJ IV PRN ×2 (09:53→21:11)
--- NOTE | 2016-07-29 11:04 | HHI.PR ---
Subjective Remarks no cough, short of breath with increase activity no fever or chills Objective Vitals Vital Signs Date Time Temp Pulse Resp B/P Pulse Ox O2 Delivery O2 Flow Rate FiO2 07/29/16 10:05 20 07/29/16 08:04 97.8 87 20 130/87 93 07/29/16 07:43 93 Nasal Cannula 3.00 07/29/16 04:00 97.8 85 18 136/79 92 07/29/16 00:00 97.6 92 20 135/74 94 07/28/16 21:12 99 Nasal Cannula 2.00 07/28/16 20:00 97.8 103 18 134/82 90 07/28/16 16:19 97.9 99 20 139/81 92 07/28/16 12:07 97.8 89 20 118/79 91 I/O 07/28/16 07/28/16 07/28/16 07/29/16 07/29/16 07/29/16 07:00 15:00 23:00 07:00 15:00 23:00 Intake Total 480 ml 480 ml Balance 480 ml 480 ml Intake Oral 480 ml 480 ml # Voids 3 4 # Bowel Movements 1 0 Result Diagram: 07/25/16 0545 07/25/16 0545 Imaging Last Impressions Chest X-Ray 07/25/16 0000 Signed Impressions: Service Date/Time: Monday, July 25, 2016 04:15 - CONCLUSION: Stable appearance of hyperinflation and no acute cardiopulmonary disease. Frederick Cordero MD Lung Scan- Nuclear Medicine 07/24/16 0000 Signed Impressions: Service Date/Time: Sunday, July 24, 2016 21:37 - CONCLUSION: 1. Low probability for pulmonary embolus. Brian Bond MD Objective Remarks awake and alert, decreased breath sounds, no rhonchi, no wheezes on exam regular rhythm abdomen soft, nontender extremities no edema neuro exam- non focal A/P Assessment and Plan Acute Respiratory failure - Due to COPD exacerbation - now on NC 4L - Pulmonary ff -will get a walk test prior to DC for home 02 arrangements- I believe she will qualify COPD exacerbation- - IV steroid q 8- decrease to q 12 - Empiric antibiotic - BiPAP as needed - Singulair - DuoNeb scheduled and when necessary - Dr. Song ff GERD - po PPI - add simethicone Hypertension - Procardia Glaucoma - Latanoprost DVT GI prophylaxis - Subcutaneous heparin and Pepcid Gradually increase activity as tolerated- CM for DC planning- o2 DME walk test Melva Armando MD July 29, 2016 11:04
[2016-07-29] MEDS: SIMETHICONE 80 MG CHEWABLE TAB CHEW SCH ×3 (13:56→21:00)
[2016-07-29] MEDS: RESP: ALBUTEROL 2.5 MG/IPRATROPIUM 0.5 MG NEB (PRN) INH ×2 (16:14→20:21)
[2016-07-29] MEDS: LEVOFLOXACIN 500 MG TAB PO SCH (17:25)
[2016-07-29] MEDS: LATANOPROST 0.005% OPHT SOLN 2.5 ML BTL EACH EYE SCH (21:11)
[2016-07-29] MEDS: traZODone HCL 100 MG TAB PO SCH (21:13)
[2016-07-29] MEDS: NIFEdipine 30 MG SUSTAINED RELEASE TAB PO SCH (21:14)
[2016-07-29] MEDS: MONTELUKAST SODIUM 10 MG TAB PO SCH (21:14)
[2016-07-30] VITALS (8 sets, daily range): BP systolic 115–151; BP diastolic 70–86; PULSE 78–100; RESP 17–21; TEMP 97.1–98.5; O2SAT 90–99
[2016-07-30] MEDS: methylPREDNISolone SOD SUCC 40 MG/1 ML VIAL IV PUSH SCH ×2 (03:09→12:45)
[2016-07-30] MEDS: CHLORHEXIDINE GLUCONATE 2 % 1 PACK (2 CLOTHS) TOP SCH (04:00)
[2016-07-30] MEDS: SODIUM CHLORIDE 0.9% FLUSH 10 ML FLUSH SCH ×2 (09:00→21:00)
[2016-07-30] MEDS: BUDESONIDE-FORMOTEROL 160/4.5 MCG INHALER INH SCH ×2 (09:00→21:00)
[2016-07-30] MEDS: OLOPATADINE HCL 0.1% OPHT SOLN 5 ML BTL EACH EYE SCH (09:00)
[2016-07-30] MEDS: LACTULOSE SYRUP 20 GM/30 ML CUP PO SCH ×2 (09:34→22:42)
[2016-07-30] MEDS: MELOXICAM 7.5 MG TAB PO SCH (09:34)
[2016-07-30] MEDS: SIMETHICONE 80 MG CHEWABLE TAB CHEW SCH ×4 (09:35→21:00)
[2016-07-30] MEDS: DOCUSATE SODIUM 100 MG CAP PO SCH ×2 (09:36→22:42)
[2016-07-30] MEDS: FAMOTIDINE 20 MG TAB PO SCH ×2 (09:36→22:42)
[2016-07-30] MEDS: HEPARIN SODIUM - SQ 10,000 UNITS/ML VIAL SQ SCH ×2 (12:44→22:45)
--- NOTE | 2016-07-30 17:27 | HHI.PR ---
Subjective Remarks short of breath- near her baseline- discuss with her that she has to limit her activity as her respiratory status can tolerate no diahrrhea, no fever or chills Objective Vitals Vital Signs Date Time Temp Pulse Resp B/P Pulse Ox O2 Delivery O2 Flow Rate FiO2 07/30/16 16:08 97.6 92 18 136/84 90 07/30/16 12:59 4.00 07/30/16 12:24 98.5 97 18 141/70 91 07/30/16 08:34 97.2 88 17 151/84 90 07/30/16 05:45 99 Simple Mask 0.30 Humidified 07/30/16 05:10 97.1 86 21 145/82 99 07/30/16 00:59 97.2 78 20 115/78 97 07/29/16 21:44 18 07/29/16 21:29 97.8 94 18 136/91 94 07/29/16 20:23 94 Nasal Cannula 3.00 I/O 07/29/16 07/29/16 07/29/16 07/30/16 07/30/16 07/30/16 07:00 15:00 23:00 07:00 15:00 23:00 Intake Total 480 ml 240 ml 240 ml Output Total 700 ml Balance 480 ml 240 ml -700 ml 240 ml Intake Oral 480 ml 240 ml 240 ml Output Urine Total 700 ml # Voids 4 6 3 # Bowel Movements 0 2 0 1 Imaging Last Impressions Chest X-Ray 07/25/16 0000 Signed Impressions: Service Date/Time: Monday, July 25, 2016 04:15 - CONCLUSION: Stable appearance of hyperinflation and no acute cardiopulmonary disease. Frederick Cordero MD Lung Scan- Nuclear Medicine 07/24/16 0000 Signed Impressions: Service Date/Time: Sunday, July 24, 2016 21:37 - CONCLUSION: 1. Low probability for pulmonary embolus. Brian Bond MD Objective Remarks awake and alert, decreased breath sounds, no rhonchi, no wheezes on exam regular rhythm abdomen soft, nontender extremities no edema neuro exam- non focal A/P Assessment and Plan Acute Respiratory failure - Due to COPD exacerbation - now on NC 4L - Pulmonary ff -will get a walk test prior to DC for home 02 arrangements- qualified- 02 deleivers COPD exacerbation- - IV steroid q 8- decrease to q 12- change to po Prednisone - Empiric antibiotic- change to po on DC - Singulair - DuoNeb scheduled and when necessary - Dr. Song ff GERD - po PPI - add simethicone Hypertension - Procardia Glaucoma - Latanoprost DVT GI prophylaxis - Subcutaneous heparin and Pepcid Gradually increase activity as tolerated- CM for DC planning- o2 DME walk test Melva Armando MD July 30, 2016 17:27
[2016-07-30] MEDS: LEVOFLOXACIN 500 MG TAB PO SCH (18:00)
--- NOTE | 2016-07-30 19:08 | HHI.PR ---
Subjective Remarks 60 YOAA female with COPD exac Weaned to NC Breathing better Weak, Ambulates Objective Vital Signs Vital Signs Date Time Temp Pulse Resp B/P Pulse Ox O2 Delivery O2 Flow Rate FiO2 07/30/16 17:34 90 Nasal Cannula 4.00 07/30/16 16:08 97.6 92 18 136/84 90 07/30/16 12:59 4.00 07/30/16 12:24 98.5 97 18 141/70 91 07/30/16 08:34 97.2 88 17 151/84 90 07/30/16 05:45 99 Simple Mask 0.30 Humidified 07/30/16 05:10 97.1 86 21 145/82 99 07/30/16 00:59 97.2 78 20 115/78 97 07/29/16 21:44 18 07/29/16 21:29 97.8 94 18 136/91 94 07/29/16 20:23 94 Nasal Cannula 3.00 I/O 07/29/16 07/29/16 07/29/16 07/30/16 07/30/16 07/30/16 07:00 15:00 23:00 07:00 15:00 23:00 Intake Total 480 ml 240 ml 240 ml Output Total 700 ml Balance 480 ml 240 ml -700 ml 240 ml Intake Oral 480 ml 240 ml 240 ml Output Urine Total 700 ml # Voids 4 6 3 # Bowel Movements 0 2 0 1 Objective Remarks GENERAL: MBMN female, mild sob SKIN: Warm and dry. HEAD: Normocephalic. EYES: No scleral icterus. No injection or drainage. NECK: Supple, trachea midline. No JVD or lymphadenopathy. CARDIOVASCULAR: Regular rate and rhythm without murmurs, gallops, or rubs. RESPIRATORY: Breath sounds equal bilaterally. No accessory muscle use. End exp rhonchi GASTROINTESTINAL: Abdomen soft, non-tender, nondistended. MUSCULOSKELETAL: No cyanosis, or edema. BACK: Nontender without obvious deformity. No CVA tenderness. A/P Assessment and Plan Hypercapnoic RF, improved COPD exac Nicotine use Ch Pain PLAN: Cont Steroids Aerosol nebs Symb 2 puffs bid Wean 02 SQ Heparin Jean-Pierre Song MD July 30, 2016 19:08
[2016-07-30] MEDS: LATANOPROST 0.005% OPHT SOLN 2.5 ML BTL EACH EYE SCH (22:42)
[2016-07-30] MEDS: traZODone HCL 100 MG TAB PO SCH (22:42)
[2016-07-30] MEDS: MONTELUKAST SODIUM 10 MG TAB PO SCH (22:42)
[2016-07-30] MEDS: predniSONE 20 MG TAB PO SCH (22:42)
[2016-07-30] MEDS: NIFEdipine 30 MG SUSTAINED RELEASE TAB PO SCH (22:42)
[2016-07-31] VITALS (7 sets, daily range): BP systolic 122–143; BP diastolic 67–89; PULSE 81–93; RESP 16–20; TEMP 96.6–98.3; O2SAT 91–97
[2016-07-31] MEDS: CHLORHEXIDINE GLUCONATE 2 % 1 PACK (2 CLOTHS) TOP SCH (04:00)
[2016-07-31] MEDS: predniSONE 20 MG TAB PO SCH (09:00)
[2016-07-31] MEDS: BUDESONIDE-FORMOTEROL 160/4.5 MCG INHALER INH SCH (09:00)
[2016-07-31] MEDS: OLOPATADINE HCL 0.1% OPHT SOLN 5 ML BTL EACH EYE SCH (09:00)
[2016-07-31] MEDS: LACTULOSE SYRUP 20 GM/30 ML CUP PO SCH (09:10)
[2016-07-31] MEDS: DOCUSATE SODIUM 100 MG CAP PO SCH (09:10)
[2016-07-31] MEDS: SIMETHICONE 80 MG CHEWABLE TAB CHEW SCH ×2 (09:11→13:30)
[2016-07-31] MEDS: MELOXICAM 7.5 MG TAB PO SCH (09:11)
[2016-07-31] MEDS: FAMOTIDINE 20 MG TAB PO SCH (09:11)
[2016-07-31] MEDS: SODIUM CHLORIDE 0.9% FLUSH 10 ML FLUSH SCH (09:13)
--- NOTE | 2016-07-31 09:47 | HHI.DCPOC ---
Discharge Care Plan Diagnosis: (1) Acute respiratory failure with hypoxia (2) COPD with acute exacerbation Your Health Problems Are: Difficulty with ADL Exercise Tolerance Goals to Promote Your Health * To prevent worsening of your condition and complications * To maintain your health at the optimal level Directions to Meet Your Goals Take your medications as prescribed Follow your dietary instruction Follow activity as directed Keep your appointments as scheduled Take your immunizations and boosters as scheduled If your symptoms worsen call your PCP, if no PCP go to Urgent Care Center or Emergency Room Smoking is Dangerous to Your Health. Avoid second hand smoke Call the 24-hour hour crisis hotline for domestic abuse at Jeremy Westbrook MD July 31, 2016 09:47
[2016-07-31] MEDS: HEPARIN SODIUM - SQ 10,000 UNITS/ML VIAL SQ SCH (11:15)
--- NOTE | 2016-07-31 13:39 | HHI.PR ---
Subjective Remarks Follow-up COPD and respiratory failure. States she is doing okay ambulating in her room on 3 L nasal cannula. She wants to go home. Advised we need to ambulate hallway if she can tolerate discussed with RN Objective Vitals Vital Signs Date Time Temp Pulse Resp B/P Pulse Ox O2 Delivery O2 Flow Rate FiO2 07/31/16 12:34 97.5 93 18 128/71 91 07/31/16 10:05 91 Nasal Cannula 3.00 07/31/16 08:39 96.6 85 16 125/67 93 07/31/16 07:50 Nasal Cannula 4.00 40 07/31/16 06:02 96.9 89 20 130/89 97 07/31/16 03:51 92 Nasal Cannula 4.00 07/31/16 00:41 96.9 81 19 143/86 95 07/30/16 21:59 97.7 100 19 147/86 90 07/30/16 19:00 Nasal Cannula 3.00 Humidified 07/30/16 17:34 90 Nasal Cannula 4.00 07/30/16 16:08 97.6 92 18 136/84 90 I/O 07/30/16 07/30/16 07/30/16 07/31/16 07/31/16 07/31/16 06:59 14:59 22:59 06:59 14:59 22:59 Intake Total 240 ml 640 ml Output Total 700 ml Balance -700 ml 240 ml 640 ml Intake Oral 240 ml 640 ml Output Urine Total 700 ml # Voids 3 2 # Bowel Movements 0 1 0 Imaging Last Impressions Chest X-Ray 07/25/16 0000 Signed Impressions: Service Date/Time: Monday, July 25, 2016 04:15 - CONCLUSION: Stable appearance of hyperinflation and no acute cardiopulmonary disease. Frederick Cordero MD Lung Scan-V Nuclear Medicine 07/24/16 0000 Signed Impressions: Service Date/Time: Sunday, July 24, 2016 21:37 - CONCLUSION: 1. Low probability for pulmonary embolus. Brian Bond MD Objective Remarks GENERAL: Well-developed, well-nourished in no distress SKIN: Warm and dry. HEAD: Atraumatic. Normocephalic. EYES: Pupils equal and round. No scleral icterus. No injection or drainage. ENT: No nasal bleeding or discharge. Mucous membranes pink and moist. NECK: Trachea midline. No JVD. CARDIOVASCULAR: Regular rate and rhythm. RESPIRATORY: No accessory muscle use. Clear to auscultation. Breath sounds equal bilaterally. GASTROINTESTINAL: Abdomen soft, non-tender, nondistended. MUSCULOSKELETAL: Extremities without clubbing, cyanosis, or edema. No obvious deformities. NEUROLOGICAL: Awake and alert. No obvious cranial nerve deficits. Motor grossly within normal limits. Five out of 5 muscle strength in the arms and legs. Normal speech. PSYCHIATRIC: Appropriate mood and affect; insight and judgment normal. Procedures None A/P Problem List: (1) COPD with acute exacerbation ICD Code: J44.1 Status: Acute (2) Acute respiratory failure with hypoxia ICD Code: J96.01 Status: Acute Assessment and Plan Acute Respiratory failure. Resolved - Due to COPD exacerbation - now on NC 3L - Pulmonary ff COPD exacerbation-improved - IV steroid switched to po Prednisone - Empiric antibiotic- changed to po on DC - Singulair - DuoNeb scheduled and when necessary - Dr. Song ff GERD - po PPI - added simethicone Hypertension - Procardia Glaucoma - Latanoprost DVT GI prophylaxis - Subcutaneous heparin and Pepcid Gradually increase activity as tolerated- Discharge Planning Stable for discharge Jeremy Westbrook MD July 31, 2016 13:39
[2016-07-31] MEDS ORDERED: PRED20 PO (13:45)
[2016-07-31] MEDS ORDERED: SYMB160A INH (13:45)
[2016-07-31] MEDS ORDERED: FAMO20TA2 PO (13:46)
--- NOTE | 2016-07-31 13:47 | HHI.DS ---
Discharge Summary Admission Date July 24, 2016 at 22:41 Discharge Date: July 31, 2016 Admitting Diagnosis Hypoxic Respiratory Failure, COPD exacerbation (1) COPD with acute exacerbation ICD Code: J44.1 Diagnosis: Principal (2) Acute respiratory failure with hypoxia ICD Code: J96.01 Diagnosis: Principal Procedures None Brief History - From Admission 60-year-old female lifelong smoker presents complaining of wheezing and shortness of breath. Her symptoms started a week ago. She has known history of COPD and has been using her inhaler on a regular basis. She is also using in health steroid. She denies any chest pain, fever or chills. Patient states that she has productive cough for the past week and she took a Z-Shankar, last day today. Imaging Last Impressions Chest X-Ray 07/25/16 0000 Signed Impressions: Service Date/Time: Monday, July 25, 2016 04:15 - CONCLUSION: Stable appearance of hyperinflation and no acute cardiopulmonary disease. Frederick Cordero MD Lung Scan-V Nuclear Medicine 07/24/16 0000 Signed Impressions: Service Date/Time: Sunday, July 24, 2016 21:37 - CONCLUSION: 1. Low probability for pulmonary embolus. Brian Bond MD PE at Discharge GENERAL: Well-developed, well-nourished in no distress SKIN: Warm and dry. HEAD: Atraumatic. Normocephalic. EYES: Pupils equal and round. No scleral icterus. No injection or drainage. ENT: No nasal bleeding or discharge. Mucous membranes pink and moist. NECK: Trachea midline. No JVD. CARDIOVASCULAR: Regular rate and rhythm. RESPIRATORY: No accessory muscle use. Clear to auscultation. Breath sounds equal bilaterally. GASTROINTESTINAL: Abdomen soft, non-tender, nondistended. MUSCULOSKELETAL: Extremities without clubbing, cyanosis, or edema. No obvious deformities. NEUROLOGICAL: Awake and alert. No obvious cranial nerve deficits. Motor grossly within normal limits. Five out of 5 muscle strength in the arms and legs. Normal speech. PSYCHIATRIC: Appropriate mood and affect; insight and judgment normal. Hospital Course Acute Respiratory failure. Resolved - Due to COPD exacerbation - now on NC 3L - Pulmonary ff COPD exacerbation-improved - IV steroid switched to po Prednisone - Empiric antibiotic- changed to po on DC - Singulair - DuoNeb scheduled and when necessary - Dr. Song ff GERD - po PPI - added simethicone Hypertension - Procardia Glaucoma - Latanoprost DVT GI prophylaxis - Subcutaneous heparin and Pepcid Gradually increase activity as tolerated- Pt Condition on Discharge: Stable Discharge Disposition: Discharge Home Discharge Time: > 30 minutes Discharge Instructions DIET: Follow Instructions for: As Tolerated, No Restrictions Activities you can perform: Regular-No Restrictions Activities to Avoid: Driving Follow up Referrals: PCP Follow-up - 1 Week Pulmonology - 1 Week New Medications: Oxygen tank (Oxygen tank) 1 Ea Tank 2 LITER FRANK.[place] CONTINUOUS Oxygen Concentrator Portable Gaseous 2 L/min via Nasal Cannula Continuous For 99 months HYPOXEMIA PREVENTION #2 CYLINDER Budesonide-Formoterol Inh (Symbicort Inh) 160-4.5 Mcg/Act Aero 2 PUFF INH Q12HR Breathing Treatment #1 INHALER Famotidine (Famotidine) 20 Mg Tab 20 MG PO BID Manage Heartburn #60 TAB Prednisone (Prednisone) 20 Mg Tab 20 MG PO BID Take 1 pill twice a day for 3 days, then 1 pill a day for 4 days Control Inflammation #10 TAB Continued Medications: Albuterol Sulfate (Proventil Ud 0.5%) 2.5 Mg/0.5 Ml Nebu 2.5 MG NEB 2-3 TIMES A DAY PRN SHORTNESS OF BREATH Albuterol Sulfate (Proair Hfa) 8.5 Gm Aero 2 PUFF INH Q4H * SHAKE WELL BEFORE USE * PRN SHORTNESS OF BREATH #1 BOX Lactulose (Encephalopathy) (Lactulose) 10GM/15 Elsy 30 ML PO BID Meloxicam (Mobic 7.5 Mg Tab) 7.5 Mg Tab 15 MG PO DAILY TAB Montelukast Sodium (Singulair) 10 Mg Tab 10 MG PO HS Nifedipine (Procardia Xl) 30 Mg Tabcr 30 MG PO HS TAB Travoprost (Travatan Z) 0.004 % Nikita 1 DROP EACH EYE HS #5 ML Trazodone HCl (Trazodone HCl) 100 Mg Tab 100 MG PO HS TAB Jeremy Westbrook MD July 31, 2016 13:47
--- NOTE | 2016-07-31 19:12 | HHI.PR ---
Subjective Remarks 60 YOAA female with COPD exac Weaned to NC Breathing better Weak, Ambulates No new complaint Objective Vital Signs Vital Signs Date Time Temp Pulse Resp B/P Pulse Ox O2 Delivery O2 Flow Rate FiO2 07/31/16 16:49 98.3 93 18 122/77 91 07/31/16 12:34 97.5 93 18 128/71 91 07/31/16 10:05 91 Nasal Cannula 3.00 07/31/16 08:39 96.6 85 16 125/67 93 07/31/16 07:50 Nasal Cannula 4.00 40 07/31/16 06:02 96.9 89 20 130/89 97 07/31/16 03:51 92 Nasal Cannula 4.00 07/31/16 00:41 96.9 81 19 143/86 95 07/30/16 21:59 97.7 100 19 147/86 90 I/O 07/30/16 07/30/16 07/30/16 07/31/16 07/31/16 07/31/16 06:59 14:59 22:59 06:59 14:59 22:59 Intake Total 240 ml 640 ml 120 ml 240 ml Output Total 700 ml Balance -700 ml 240 ml 640 ml 120 ml 240 ml Intake Oral 240 ml 640 ml 120 ml 240 ml IV Total 0 ml Output Urine Total 700 ml # Voids 3 2 3 2 # Bowel Movements 0 1 0 1 Objective Remarks GENERAL: MBMN female, mild sob SKIN: Warm and dry. HEAD: Normocephalic. EYES: No scleral icterus. No injection or drainage. NECK: Supple, trachea midline. No JVD or lymphadenopathy. CARDIOVASCULAR: Regular rate and rhythm without murmurs, gallops, or rubs. RESPIRATORY: Breath sounds equal bilaterally. No accessory muscle use. End exp rhonchi GASTROINTESTINAL: Abdomen soft, non-tender, nondistended. MUSCULOSKELETAL: No cyanosis, or edema. BACK: Nontender without obvious deformity. No CVA tenderness. A/P Assessment and Plan Hypercapnoic RF, improved COPD exac Nicotine use Ch Pain PLAN: Cont Steroids Aerosol nebs Symb 2 puffs bid Wean 02 SQ Heparin SOHAIL [place] Stable to Jean-Pierre Alex MD July 31, 2016 19:12
--- NOTE | 2016-08-03 08:34 | RSPPFT ---
DATE OF PROCEDURE: 07/31/16 COMMENTS: Spirometry shows FVC of 1.1 at 41% of predicted, FEV1 of 0.5 at 54%, FEV1/FVC ratio is decreased. Flow is decreased at FEF 25-75. There is no significant response after acutely inhaled bronchodilator treatment. Flow volume loop indicates an obstructive pattern. IMPRESSION: 1. Severe obstructive lung disease. 2. No response after bronchodilator treatment.
== END 2016-07-31 19:02 | disposition home or self-care (01) | DRG 190 ==
LOC: NEPC 18:07 → NEDA 22:41 → HIMN 07-25 00:45 → N05A 07-26 21:24
PROVIDERS: ADMIT Internal Medicine; ATTEND Internal Medicine
PROC: 5A09457 Assistance with Respiratory Ventilation, 24-96 Consecutive Hours, Continuous Positive Airway Pressure (ICD-10-PCS; principal; 2016-07-24)
DX: J44.1 Chronic obstructive pulmonary disease with (acute) exacerbation (principal); J96.01 Acute respiratory failure with hypoxia; J45.909 Unspecified asthma, uncomplicated; F17.210 Nicotine dependence, cigarettes, uncomplicated; K21.9 Gastro-esophageal reflux disease without esophagitis; I10 Essential (primary) hypertension; H40.9 Unspecified glaucoma; G89.29 Other chronic pain; F32.9 Major depressive disorder, single episode, unspecified; F41.9 Anxiety disorder, unspecified
CPT/HCPCS: 36600; 71010; 78582; 80053; 82550; 82805; 83735; 83880; 84100; 84484; 85025; 85379; 85610; 85730; 87641; 93005; 94002; 94003; 94060; 94620; 94640; 94664; A9540; A9567; J1644; J1956; J2270; J2920; J2930; J7030; J7512